=== PATIENT | female | born 1955 | race Hispanic/Latino ===

== ENCOUNTER 2020-10-23 01:04 | Emergency (ER) | payer OTHER, SELFPAY ==
[~2020-10-23] VITALS: Ht 154.9 cm; Wt 60.8 kg
[~2020-10-23 01:04] MED LIST: LEVO50TA4 PO
[2020-10-23 01:20] VITALS: BP 141/68
[2020-10-23 01:45] LABS: BASOPHILS % (AUTO) 0.1 % (0.0-5.0); HEMATOCRIT 44.5 % (36-48); LYMPHOCYTES % (AUTO) 6.8 % (21.0-51.0); MEAN CORPUSCULAR HEMOGLOBIN 29.5 pg (27.0-33.0); MEAN CORPUSCULAR VOLUME 89.4 fL (79-99); MONOCYTES % (AUTO) 2.9 % (3.0-13.0); NEUTROPHILS % (AUTO) 89.9 % (40.0-77.0); PLATELET COUNT (AUTO) 307 K/uL (130-400); RED BLOOD CELL COUNT(AUTO) 4.98 MIL/uL (4.00-5.50); RED CELL DISTRIBUTION WIDTH 12.9 % (11.0-15.5)
[2020-10-23] MEDS ORDERED: KETOROLAC 15MG/ML VIAL (15MG/ML) IV ONE (01:45)
[2020-10-23] MEDS ORDERED: ONDANSETRON 4MG INJ IVP ONE (01:45)
[2020-10-23] MEDS ORDERED: FAMOTIDINE 20MG VIAL IV ONE ×2 (01:45→02:10)
[2020-10-23] MEDS ORDERED: NACL 0.9% 1000ML 1,000 ML IV ONE ×2 (01:45→02:09)
[2020-10-23 01:50] LABS: CREATININE 0.9 mg/dL (0.5-1.5); POTASSIUM 4.2 mmol/L (3.5-5.1)
[2020-10-23 01:54] LABS: BILIRUBIN,TOTAL 0.7 mg/dL (0.2-1.0); TOTAL PROTEIN, SERUM 8.4 g/dL (6.0-8.3)
[2020-10-23] MEDS ORDERED: KETOROLAC 15MG/ML VIAL (15MG/ML) ONE (02:09)
[2020-10-23] MEDS ORDERED: ONDANSETRON 4MG INJ ONE (02:09)
[2020-10-23] MEDS ORDERED: IOHEXOL 350 MG/ML 100ML INFUS..BTL IV ONE (02:57)
[2020-10-23] MEDS ORDERED: LACT1CAP70 PO (03:09)
[2020-10-23] MEDS ORDERED: FAMO-136 PO (03:09)
[2020-10-23] MEDS ORDERED: OMEP20TA25 PO (03:09)
[2020-10-23 03:21] VITALS: BP 130/64
== END 2020-10-23 03:25 | disposition home or self-care (01) ==
LOC: EDH 01:18
DX: K52.9 Noninfective gastroenteritis and colitis, unspecified (principal); Z88.1 Allergy status to other antibiotic agents; Z88.2 Allergy status to sulfonamides; Z88.8 Allergy status to other drugs, medicaments and biological substances; Z98.890 Other specified postprocedural states
CPT/HCPCS: 36415; 80053; 83690; 84484; 85025; 96361; 96374; 96375; 99284; J1885; J2405; J3490; J7030; Q9967

== ENCOUNTER → 2021-06-17 | Outpatient (CLI) | payer OTHER ==
[~2021-06-17] MED LIST changes: +FAMO-136 PO; +LACT1CAP70 PO; +OMEP20TA25 PO
== END | disposition home or self-care (01) ==
LOC: RAH 10:57
PROVIDERS: ATTEND Internal Medicine
DX: N83.202 Unspecified ovarian cyst, left side (principal)
CPT/HCPCS: 76856

== ENCOUNTER 2023-02-26 22:57 | Emergency (ER) | payer OTHER ==
[~2023-02-26] VITALS: Ht 154.9 cm; Wt 65.8 kg
[~2023-02-26 22:57] MED LIST changes: +OMEP20TA20 PO; -OMEP20TA25 PO
[2023-02-26] MEDS ORDERED: ONDANSETRON ODT 4MG TAB ONE (23:01)
[2023-02-26 23:26] LABS: APPEARANCE,URINE CLEAR (CLEAR); BILIRUBIN,URINE NEGATIVE (NEGATIVE); COLOR,URINE COLORLESS (YELLOW); GLUCOSE, URINE (UA) NEGATIVE (NEGATIVE); KETONES,URINE NEGATIVE (NEGATIVE); LEUKOCYTE ESTERASE ,URINE NEGATIVE Leu/uL (NEGATIVE); NITRATE,URINE NEGATIVE (NEGATIVE); OCCULT BLOOD,URINE MODERATE (NEGATIVE); PH,URINE 6.5 (5.0-8.0); PROTEIN,URINE NEGATIVE (NEGATIVE); UROBILINOGEN,URINE 0.2 mg/dL (0.2-1.0)
[2023-02-26 23:28] LABS: BASOPHILS # (AUTO) 0.04 K/uL (0.00-0.20); BASOPHILS % (AUTO) 0.3 % (0.0-5.0); EOSINOPHILS # (AUTO) 0.07 K/uL (0.00-0.70); EOSINOPHILS % (AUTO) 0.5 % (0.0-8.0); HEMATOCRIT 39.9 % (36-48); IMMATURE GRANULOCYTE ABSOLUTE 0.05 K/uL (0-1); LYMPHOCYTES # (AUTO) 1.3 K/uL (1.0-4.8); LYMPHOCYTES % (AUTO) 9.9 % (21.0-51.0); MEAN CORPUSCULAR HEMOGLOBIN 29.8 pg (27.0-33.0); MEAN CORPUSCULAR HGB CONC 33.8 g/dL (32.0-36.0); MEAN CORPUSCULAR VOLUME 88.1 fL (79-99); MONOCYTES # (AUTO) 0.7 K/uL (0.1-1.0); MONOCYTES % (AUTO) 5.1 % (3.0-13.0); NEUTROPHILS # (AUTO) 11.1 K/uL (1.8-7.7); NEUTROPHILS % (AUTO) 83.8 % (40.0-77.0); PLATELET COUNT (AUTO) 266 K/uL (130-400); RED BLOOD CELL COUNT(AUTO) 4.53 MIL/uL (4.00-5.50); RED CELL DISTRIBUTION WIDTH 13.3 % (11.0-15.5); WHITE BLOOD COUNT (AUTO) 13.3 K/uL (4.8-10.8)
[2023-02-26 23:29] LABS: ADD UA MICROSCOPIC YES
[2023-02-26] MEDS ORDERED: ONDANSETRON ODT 4MG TAB SL ONE (23:30)
[2023-02-26 23:31] LABS: RBC,URINE 51-100 /HPF (0-1); WBC,URINE 0-1 /HPF (0-1)
[2023-02-26 23:37] LABS: CREATININE 1.4 mg/dL (0.5-1.5); POTASSIUM 3.9 mmol/L (3.5-5.1)
[2023-02-26 23:42] LABS: ALBUMIN 3.6 g/dL (3.5-5.0); BILIRUBIN,TOTAL 0.4 mg/dL (0.2-1.0); TOTAL PROTEIN, SERUM 8.2 g/dL (6.0-8.3)
[2023-02-26 23:47] LABS: WBC MORPHOLOGY CONSISTENT W/DIFF
[2023-02-27] MEDS ORDERED: ACETAMINOPHEN WITH CODEINE 1 TAB TAB PO ONE
[2023-02-27 01:34] VITALS: BP 121/60; PULSE 78; RESP 18; O2SAT 98
[2023-02-27] MEDS ORDERED: TAMS-1 PO (01:34)
[2023-02-27] MEDS ORDERED: TRAM50TA4 PO (01:34)
[2023-02-27] MEDS ORDERED: IBUP-1493 PO (01:34)
== END 2023-02-27 01:47 | disposition home or self-care (01) ==
LOC: EDH 22:57
DX: N13.2 Hydronephrosis with renal and ureteral calculous obstruction (principal); E03.9 Hypothyroidism, unspecified; Z79.899 Other long term (current) drug therapy; Z88.1 Allergy status to other antibiotic agents; Z88.2 Allergy status to sulfonamides
CPT/HCPCS: 36415; 74176; 80053; 81001; 83690; 85025